=== PATIENT | female | born 1945 | race Caucasian/White ===

== ENCOUNTER 2024-11-06 13:59 | Emergency (ER) | payer MEDICARE, SELFPAY ==
[2024-11-06 14:14] VITALS: BP 114/66; PULSE 68; RESP 16; TEMP 36.3; O2SAT 98
--- NOTE | 2024-11-06 15:12 | ED_ITS ---
HPI - Extremity Injury (Upper) General: Chief Complaint: Extremity Injury, Upper Stated Complaint: fall rt side Time Seen by Provider: 11/06/24 15:04 Source: patient Mode of arrival: wheelchair Limitations: no limitations History of Present Illness: Patient is an 79-year-old female presents today with pain and swelling to her right wrist. Patient states her foot slipped on gravel and she struck the wrist on a metal barrier/post. Patient reports that since then she has had pain and swelling in her wrist. Patient denies injuring anything else in this incident. Patient denies hitting her head or loss of consciousness. complaint: injury to: right and wrist Onset (ago): hour(s) Other Extremity Injury: Right: wrist Other injuries: none Place: home Severity: moderate Relieving factors: immobilization Exacerbating factors: movement of extremity Context: direct blow Associated symptoms: Reports no associated symptoms; Denies neck pain Related Data Previous Rx's ?Medication ?Instructions ?Recorded hydrocodone 5 mg-acetaminophen 325 1 tab PO .q4-6 PRN pain #15 tabs 11/06/24 mg tablet Allergies Allergy/AdvReac Type Severity Reaction Status Date / Time celecoxib (From Celebrex) Allergy Unknown Verified 11/06/24 14:22 naproxen Allergy Unknown Verified 11/06/24 14:22 Review of Systems Musc: Reports: joint pain (R wrist) and joint swelling (R wrist); Denies: neck pain, back pain, extremity pain, extremity swelling, joint redness or joint warmth Neuro: Denies: numbness in extremities or sensory changes Physical Exam Const: COMMON NORMALS: no acute distress, average body habitus, no limitations, healthy appearing, alert and well nourished HENMT: COMMON NORMALS: normocephalic and atraumatic HEAD & SCALP: normocep halic and atraumatic Neck/C-Spine: CERVICAL SPINE: No Cervical spine tenderness Back/Pelvis: COMMON NORMALS: thoracic and lumbar spine normal to inspection Extremity: GENERAL: Yes normal exam except as noted RIGHT UPPER EXTREMITY: Yes wrist (significant edema and mild ecchymosis with mild deformity distal wrist) Right wrist: Yes ROM (limited due to pain) and Yes neurovascular exam (normal) Neuro: COMMON NORMALS: moves all extremities, no focal motor deficits and no sensory deficits noted SENSORIUM/ORIENTATION: Yes alert Course Vital Signs: Vital signs: Vital Signs Temperature 97.3 F L 11/06/24 14:14 Pulse Rate 68 11/06/24 14:14 Respiratory Rate 16 11/06/24 14:14 Blood Pressure 114/66 11/06/24 14:14 Pulse Oximetry 98 11/06/24 14:14 MDM - Extremity Injury (Upper) Medical Decision Making XR showing distal radial/ulnar fractures. Will splint/sling. She states they are from [facility] and will be traveling home tomorrow. She does have an research quality assurance specialist that she sees at home. She will contact their office tomorrow to schedule a prompt appointment. Medical Records I reviewed the patient's medical records. Lab Data Radiology Impressions Wrist X-Ray 11/06/24 15:12 IMPRESSION: 1. Impacted dorsally angulated fracture of the distal radius. 2. Small cortical fracture along the ulnar styloid. Fracture age indeterminate. All radiology interpretation(s) finalized by discharge Discharge Plan Discharge Patient Disposition: Home Clinical Impression: Closed fracture of right distal radius, Fracture of right ulnar styloid Condition: Stable Prescriptions: New hydrocodone-acetaminophen 5-325 mg tablet 1 tab PO .q4-6 PRN (Reason: pain) Qty: 15 0RF Discharge Orders: Discharge ED (Routine); Ordered 11/06/24 Ordered By: Dayana Hill Referrals: Vandana Escamilla [Primary Care Provider] - Patient Instructions: Wrist Fracture in Adults (ED), Opioid Safety, Pain Management Activity Restrictions/Additional Instructions: As we discussed, you were found to have fractures involving your distal radius and ulna of the right wrist. You were placed in a splint/sling. You need to contact your research quality assurance specialist as soon as you get home to schedule a prompt follow-up visit for re-evaluation. Print Language: Comoran Coding Level of Care Code ED [employer] for Arline Rodriguez
--- NOTE | 2024-11-06 15:12 | XR_ITS ---
WS: [id number] Exam: XR wrist RT min 3V* 00013 Date/Time of Exam: 11/06/2024 3:14 PM Reason For Exam: trauma/pain There is an impacted dorsally angulated fracture of the distal radius. Also a cortical fracture of the ulnar styloid. No other fractures. Calcification of the triangular fibrocartilage. Moderate degenerative changes in the wrist. XR/XR wrist RT min 3V* [id number] IMPRESSION: 1. Impacted dorsally angulated fracture of the distal radius. 2. Small cortical fracture along the ulnar styloid. Fracture age indeterminate.
[2024-11-06] MEDS: HYDROcodone-acetaminophen 5-325 mg Tablet 2 TAB PO (16:00)
--- NOTE | 2024-11-07 09:03 | DCPLANNER ---
Message sent to Ortho for follow up-Medical Decision Making XR showing distal radial/ulnar fractures. Will splint/sling. She states they are from [facility] and will be traveling home tomorrow. She does have an medical specialist that she sees at home. She will contact their office tomorrow to schedule a prompt appointment.
== END 2024-11-06 16:03 | disposition home or self-care (01) ==
PROVIDERS: Emergency Provider Physician Assistant; PCP Family Medicine
DX: S52.501A Unspecified fracture of the lower end of right radius, initial encounter for closed fracture (principal); S52.611A Displaced fracture of right ulna styloid process, initial encounter for closed fracture; W01.0XXA Fall on same level from slipping, tripping and stumbling without subsequent striking against object, initial encounter
CPT/HCPCS: 29125; 73110; 99283; 99291; J9999